=== PATIENT | male | born 1950 | race Caucasian/White ===

== ENCOUNTER 2017-02-11 05:21 | Day surgery (SDC) | payer OTHER ==
[~2017-02-11] VITALS: Ht 175.3 cm; Wt 71.7 kg
--- NOTE | ~2017-02-11 | O ---
[facility] [place] [address] OPERATIVE REPORT Name: DANIAL LYNCH Collin Room #: 150-7 [facility]..#: [id number] Admission: 02/11/17 Attend Phys: Marquise Segundo MD Discharge: Date of : 46 Report #: [id number] THIS REPORT FOR: //name// CC: Dakota Segundo DATE OF SERVICE: 02/11/2017 PREOPERATIVE DIAGNOSIS: Recurrent perirectal abscess. POSTOPERATIVE DIAGNOSIS: Recurrent perirectal abscess with anal fistula. PROCEDURE PERFORMED: Exam under anesthesia with fistulotomy. SURGEON: Marquise Segundo MD ANESTHESIA: General anesthesia. COMPLICATIONS: None. ESTIMATED BLOOD LOSS: 5 mL. PROCEDURE NOTE: The patient is in the lithotomy position, the patient has a left posterior abscess. There is external hemorrhoid over this area. On digital rectal exam, I do not feel the distinct abnormality internally. The abscess is located posterior, slightly left of the midline. I went ahead and injected the cavity with methylene blue. As I was injecting, there is blue color that came out of the rectum. I reinjected and at this time with a scope in there I can see that it is coming out the midline. The hole is not very big. This area was probed carefully and the probe did not fall into any obvious gland. I went ahead and opened the abscess cavity and ____ cavity cephalad to the gland and there is a tract that goes right close to the area and I had to come through the mucosa. The tunnel was opened, the wire was able to be brought out and the abscess cavity was opened and the mucosa was opened and I could see that the internal sphincter muscle was the only thing that will need to be divided. This was divided and instead of using a seton, the track was curetted. Hemostasis was obtained with cautery. Local anesthetic of 0.25% Marcaine was injected around the incision. Gelfoam with Silvadene and topical lidocaine jelly was mixed and then placed in the surgical site. 4x4, ABD tape were applied. The patient was awakened and taken to recovery room. By: [id number] Marquise Segundo MD /nt
[~2017-02-11 05:21] MED LIST: ASPIR 8181 MG PO; SIMVASTATIN40 MG PO
[2017-02-11 14:25] VITALS: BP 120/70
[2017-02-11] MEDS ORDERED: NORCO 5-325 TA1 EACH PO (18:05)
[2017-02-11 18:25] VITALS: BP 120/70
== END 2017-02-11 19:10 | disposition home or self-care (01) ==
LOC: OR 05:21 → TBA 05:21 → OR 09:48
DX: K61.1 Rectal abscess (principal); K64.4 Residual hemorrhoidal skin tags
CPT/HCPCS: 50010; 50101; 50386; 62110; 62900; 70005

== ENCOUNTER → 2017-08-03 | Outpatient (CLI) | payer OTHER ==
[~2017-08-03] MED LIST changes: +NORCO 5-325 TA1 EACH PO
== END ==
LOC: RAD 16:51
DX: R05 Cough (principal); R50.9 Fever, unspecified

== ENCOUNTER → 2019-10-21 | Outpatient (CLI) | payer OTHER | LOC: SJCVCIMAG 10:29 | DX: I65.23 Occlusion and stenosis of bilateral carotid arteries (principal); E78.5 Hyperlipidemia, unspecified; Z87.891 Personal history of nicotine dependence ==